=== PATIENT | male | born 1945 | race Caucasian/White ===

== ENCOUNTER 2021-02-23 16:09 | Inpatient (IN) | payer MEDICARE ==
[2021-02-23] MEDS ORDERED: Dextrose 50% Abboject 50 ML SYRINGE ONE (17:44)
[2021-02-23] MEDS ORDERED: HYDROcodone/Acetaminophen 5/325 mg Tablet ONE (18:49)
[2021-02-23 19:25] LABS: CKMB 1.7 ng/mL (0-6.6)
[2021-02-23] MEDS ORDERED: Ondansetron PF 4 MG/2 ML Vial IVP PRN (22:45)
[2021-02-23] MEDS ORDERED: Ondansetron ODT 4 MG TAB SL PRN (22:45)
[2021-02-23] MEDS ORDERED: Acetaminophen 325 MG TAB PO PRN (22:45)
[2021-02-23] MEDS ORDERED: Acetaminophen 325 MG TAB ONE (22:46)
[2021-02-24] MEDS ORDERED: HYDROcodone/Acetaminophen 5/325 mg Tablet PO PRN (00:15)
[2021-02-24] MEDS ORDERED: Dextrose 50% Abboject 50 ML SYRINGE SLOW IVP PRN (00:15)
[2021-02-24] MEDS ORDERED: Dextrose 5% in Water 1,000 ML IV PRN (00:15)
[2021-02-24] MEDS ORDERED: HumaLOG 300 UNITS/3 ML VIAL SC PRN (00:15)
[2021-02-24] MEDS ORDERED: hydrALAZINE 20 MG/ML VIAL SLOW IVP PRN (00:20)
[2021-02-24 02:46] VITALS: BMI 29.8
[2021-02-24 05:47] LABS: ALT (SGPT) 29 U/L (8-55); AST (SGOT) 62 U/L (5-34); Albumin 3.2 g/dL (3.4-4.8); Alkaline Phosphatase 65 U/L (40-110); Anion Gap 11 mmol/L (10-20); BUN (Urea Nitrogen) 13 mg/dL (8.4-25.7); Bilirubin, Total 0.8 mg/dL (0.2-1.2); Calc. Creatinine Clearance 104 mL/min (70-130); Calcium 9.2 mg/dL (7.8-10.44); Carbon Dioxide 25 mmol/L (23-31); Chloride 104 mmol/L (98-107); Globulin 3.1 g/dL (2.4-3.5); Glucose 121 mg/dL (83-110); Potassium 4.1 mmol/L (3.5-5.1); Protein, Total 6.3 g/dL (5.8-8.1); Sodium 136 mmol/L (136-145)
[2021-02-24 05:50] LABS: Band 2 % (5-11); Hemoglobin 13.4 g/dL (14.0-18.0); Lymphocytes 9 % (21-51); MDiff Complete? YES; Mean Corpuscular Hemoglobin 29.9 pg (27.0-31.0); Mean Platelet Volume 9.6 fL (7.4-10.4); Monocytes 4 % (0-10); Neutrophil 85 % (42-75); Platelet Count 146 thou/uL (130-400); Platelet Morphology Comment Appears Adequate; RBC Distribution Width 12.7 % (11.5-14.5); RBC Morphology Normal; Red Blood Cell (RBC) Count 4.49 mill/uL (4.70-6.10); White Blood Cell (WBC) Count 7.6 thou/uL (4.8-10.8)
[2021-02-24] MEDS ORDERED: Dexamethasone 1 MG TAB PO SCH (08:00)
[2021-02-24] MEDS ORDERED: Non-Formulary Item 1 EACH (Levothyroxine Sodium [Levothyroxine] 112 MCG Capsule) PO SCH (09:00)
[2021-02-24] MEDS: Carvedilol 25 MG TAB PO SCH ×2 (09:55→21:00)
[2021-02-24] MEDS: Enoxaparin Sodium 40 MG/0.4 ML SYRINGE SC SCH (09:55)
[2021-02-24] MEDS: guaiFENesin ER 600 MG TAB PO SCH ×2 (09:55→21:00)
[2021-02-24] MEDS: Sacubitril 49 MG/Valsartan 51 MG TABLET PO SCH ×2 (09:56→21:00)
[2021-02-24] MEDS: Zinc Sulfate 220 MG CAP PO SCH (09:56)
[2021-02-24] MEDS: Famotidine 20 MG TAB PO SCH ×2 (09:56→21:00)
[2021-02-24 13:49] LABS: Hemoglobin A1c 8.4 % (4.0-6.0)
[2021-02-24] MEDS: Acetaminophen 500 MG TAB PO PRN ×2 (16:15→22:10)
[2021-02-24] MEDS: Atorvastatin Calcium 10 MG TAB PO SCH (21:00)
[2021-02-24] MEDS ORDERED: Simvastatin 20 MG TAB PO SCH (21:00)
[2021-02-25] MEDS: Levothyroxine Sodium 112 MCG TAB PO SCH (05:32)
[2021-02-25 06:06] LABS: Anion Gap 13 mmol/L (10-20); BUN (Urea Nitrogen) 18 mg/dL (8.4-25.7); Calc. Creatinine Clearance 113 mL/min (70-130); Carbon Dioxide 26 mmol/L (23-31); Chloride 101 mmol/L (98-107); Potassium 3.7 mmol/L (3.5-5.1); Sodium 136 mmol/L (136-145)
[2021-02-25 06:07] LABS: Glucose 104 mg/dL (83-110); Magnesium 2.1 mg/dL (1.6-2.6)
[2021-02-25] MEDS: Sacubitril 49 MG/Valsartan 51 MG TABLET PO SCH ×2 (09:00→20:36)
[2021-02-25] MEDS ORDERED: FLU VACC QS2021-22(65YR UP)/PF 240 MCG/0.7 ML SYRINGE IM ONE (09:00)
[2021-02-25] MEDS: Zinc Sulfate 220 MG CAP PO SCH (09:00)
[2021-02-25] MEDS: guaiFENesin ER 600 MG TAB PO SCH ×2 (09:01→20:36)
[2021-02-25] MEDS: Carvedilol 25 MG TAB PO SCH ×2 (09:01→20:37)
[2021-02-25] MEDS: Enoxaparin Sodium 40 MG/0.4 ML SYRINGE SC SCH (09:03)
[2021-02-25] MEDS: Famotidine 20 MG TAB PO SCH ×2 (09:03→20:36)
[2021-02-25] MEDS: Atorvastatin Calcium 10 MG TAB PO SCH (20:36)
[2021-02-26] MEDS: Levothyroxine Sodium 112 MCG TAB PO SCH (06:52)
[2021-02-26] MEDS ORDERED: Polyethylene Glycol 3350 17 GM Packet PO SCH (09:45)
[2021-02-26] MEDS: Carvedilol 25 MG TAB PO SCH ×2 (10:07→21:10)
[2021-02-26] MEDS: Zinc Sulfate 220 MG CAP PO SCH (10:07)
[2021-02-26] MEDS: Enoxaparin Sodium 40 MG/0.4 ML SYRINGE SC SCH (10:07)
[2021-02-26] MEDS: Sacubitril 49 MG/Valsartan 51 MG TABLET PO SCH ×2 (10:08→21:10)
[2021-02-26] MEDS: Famotidine 20 MG TAB PO SCH ×2 (10:08→21:10)
[2021-02-26] MEDS: guaiFENesin ER 600 MG TAB PO SCH ×2 (10:08→21:10)
[2021-02-26] MEDS: Dexamethasone 12 MG in Sodium Chloride 0.9% 50 ML IVPB SCH (10:09)
[2021-02-26 17:14] LABS: SARS-CoV-2 IgG Spike Ab Interp Reactive (NonReactive); SARS-CoV-2 IgG Spike Conc/Indx 1026.7 AU/mL (0.00-50.0)
[2021-02-26] MEDS: Senokot S 8.6-50 MG TAB PO SCH (21:10)
[2021-02-26] MEDS: Atorvastatin Calcium 10 MG TAB PO SCH (21:10)
[2021-02-26] MEDS: Tamsulosin HCl 0.4 MG CAP PO SCH (21:11)
[2021-02-26] MEDS: Bisacodyl 10 MG SUPP PR SCH (21:42)
[2021-02-26] MEDS ORDERED: Dextrose 50% Abboject 50 ML SYRINGE SLOW IVP PRN (22:05)
[2021-02-26] MEDS ORDERED: Dextrose 5% in Water 1,000 ML IV PRN (22:05)
[2021-02-26] MEDS: HumaLOG 300 UNITS/3 ML VIAL SC PRN (22:17)
[2021-02-27 04:54] LABS: #Lymphocytes 0.9 thou/uL (1.20-3.40); #Monocytes 0.6 thou/uL (0.11-0.59); %Basophils 0.1 % (0.0-1.0); %Eosinophils 0.3 % (0.0-10.0); %Lymphocytes 14.2 % (21.0-51.0); %Monocytes 8.6 % (0.0-10.0); %Neutrophils 76.7 % (42.0-75.0); Mean Corpuscular HGB CONC 32.4 g/dL (32.0-36.0); Mean Corpuscular Hemoglobin 28.3 pg (27.0-31.0); Mean Corpuscular Volume 87.1 fL (78.0-98.0); Mean Platelet Volume 8.4 fL (7.4-10.4); Platelet Count 238 thou/uL (130-400); RBC Distribution Width 12.6 % (11.5-14.5); Red Blood Cell (RBC) Count 4.58 mill/uL (4.70-6.10); White Blood Cell (WBC) Count 6.5 thou/uL (4.8-10.8)
[2021-02-27] MEDS: Levothyroxine Sodium 112 MCG TAB PO SCH (05:28)
[2021-02-27 05:42] LABS: ALT (SGPT) 104 U/L (8-55); AST (SGOT) 126 U/L (5-34); Albumin 3.1 g/dL (3.4-4.8); Alkaline Phosphatase 132 U/L (40-110); Anion Gap 13 mmol/L (10-20); BUN (Urea Nitrogen) 17 mg/dL (8.4-25.7); Bilirubin, Total 1.1 mg/dL (0.2-1.2); CRP (Inflammatory) 30.57 mg/dL (= or < 0.5); Calc. Creatinine Clearance 112 mL/min (70-130); Calcium 9.5 mg/dL (7.8-10.44); Carbon Dioxide 23 mmol/L (23-31); Chloride 105 mmol/L (98-107); Globulin 3.4 g/dL (2.4-3.5); Glucose 324 mg/dL (83-110); Magnesium 2.2 mg/dL (1.6-2.6); Phosphorus 2.2 mg/dL (2.3-4.7); Potassium 3.9 mmol/L (3.5-5.1); Protein, Total 6.5 g/dL (5.8-8.1); Sodium 137 mmol/L (136-145)
[2021-02-27] MEDS: HumaLOG 300 UNITS/3 ML VIAL SC PRN ×4 (05:48→20:46)
[2021-02-27] MEDS: Enoxaparin Sodium 40 MG/0.4 ML SYRINGE SC SCH (08:28)
[2021-02-27] MEDS: Sacubitril 49 MG/Valsartan 51 MG TABLET PO SCH ×2 (08:30→20:48)
[2021-02-27] MEDS: Senokot S 8.6-50 MG TAB PO SCH ×2 (08:30→21:09)
[2021-02-27] MEDS: Zinc Sulfate 220 MG CAP PO SCH (08:30)
[2021-02-27] MEDS: Famotidine 20 MG TAB PO SCH ×2 (08:30→20:48)
[2021-02-27] MEDS: guaiFENesin ER 600 MG TAB PO SCH ×2 (08:30→20:48)
[2021-02-27] MEDS: Carvedilol 25 MG TAB PO SCH ×2 (08:30→20:48)
[2021-02-27] MEDS: Polyethylene Glycol 3350 17 GM Packet PO SCH (08:31)
[2021-02-27] MEDS: Dexamethasone 12 MG in Sodium Chloride 0.9% 50 ML IVPB SCH (08:35)
[2021-02-27] MEDS: Atorvastatin Calcium 10 MG TAB PO SCH (20:48)
[2021-02-27] MEDS: Tamsulosin HCl 0.4 MG CAP PO SCH (20:49)
[2021-02-27] MEDS: metFORMIN XR 500 MG TAB PO SCH (20:49)
[2021-02-27] MEDS: Bisacodyl 10 MG SUPP PR SCH (21:09)
[2021-02-28 05:31] LABS: #Monocytes 0.8 thou/uL (0.11-0.59); #Neutrophils 8.7 thou/uL (1.40-6.50); %Basophils 0.1 % (0.0-1.0); %Eosinophils 0.3 % (0.0-10.0); %Lymphocytes 9.9 % (21.0-51.0); %Monocytes 7.7 % (0.0-10.0); Hemoglobin 13.5 g/dL (14.0-18.0); Mean Corpuscular HGB CONC 31.2 g/dL (32.0-36.0); Mean Corpuscular Hemoglobin 27.2 pg (27.0-31.0); Mean Corpuscular Volume 87.1 fL (78.0-98.0); Mean Platelet Volume 8.2 fL (7.4-10.4); Platelet Count 313 thou/uL (130-400); RBC Distribution Width 12.6 % (11.5-14.5); Red Blood Cell (RBC) Count 4.98 mill/uL (4.70-6.10); White Blood Cell (WBC) Count 10.5 thou/uL (4.8-10.8)
[2021-02-28 05:49] LABS: ALT (SGPT) 123 U/L (8-55); AST (SGOT) 110 U/L (5-34); Albumin 3.3 g/dL (3.4-4.8); Alkaline Phosphatase 131 U/L (40-110); Anion Gap 13 mmol/L (10-20); BUN (Urea Nitrogen) 19 mg/dL (8.4-25.7); Bilirubin, Total 1.1 mg/dL (0.2-1.2); Calc. Creatinine Clearance 108 mL/min (70-130); Calcium 9.4 mg/dL (7.8-10.44); Carbon Dioxide 25 mmol/L (23-31); Chloride 104 mmol/L (98-107); Globulin 3.5 g/dL (2.4-3.5); Glucose 341 mg/dL (83-110); Potassium 3.9 mmol/L (3.5-5.1); Protein, Total 6.8 g/dL (5.8-8.1); Sodium 138 mmol/L (136-145)
[2021-02-28] MEDS: HumaLOG 300 UNITS/3 ML VIAL SC PRN ×4 (05:55→21:05)
[2021-02-28] MEDS: Levothyroxine Sodium 112 MCG TAB PO SCH (05:58)
[2021-02-28] MEDS ORDERED: Non-Formulary Item 1 EACH (Pioglitazone Hcl [Pioglitazone Hcl] 30 MG Tablet) PO SCH (09:00)
[2021-02-28] MEDS: Pioglitazone HCl 15 MG TAB PO SCH (09:44)
[2021-02-28] MEDS: Glimepiride 4 MG TAB PO SCH (09:44)
[2021-02-28] MEDS: Enoxaparin Sodium 40 MG/0.4 ML SYRINGE SC SCH (09:44)
[2021-02-28] MEDS: Zinc Sulfate 220 MG CAP PO SCH (09:45)
[2021-02-28] MEDS: Carvedilol 25 MG TAB PO SCH ×2 (09:45→21:07)
[2021-02-28] MEDS: guaiFENesin ER 600 MG TAB PO SCH ×2 (09:45→21:07)
[2021-02-28] MEDS: Famotidine 20 MG TAB PO SCH ×2 (09:45→21:07)
[2021-02-28] MEDS: Sacubitril 49 MG/Valsartan 51 MG TABLET PO SCH ×2 (09:45→21:07)
[2021-02-28] MEDS: Alogliptin 25 MG TAB PO SCH (09:45)
[2021-02-28] MEDS: metFORMIN XR 500 MG TAB PO SCH ×2 (09:46→21:07)
[2021-02-28] MEDS: Dexamethasone 12 MG in Sodium Chloride 0.9% 50 ML IVPB SCH (09:46)
[2021-02-28] MEDS: Polyethylene Glycol 3350 17 GM Packet PO SCH (09:47)
[2021-02-28] MEDS: Senokot S 8.6-50 MG TAB PO SCH ×2 (09:47→21:08)
[2021-02-28] MEDS ORDERED: Benzonatate 100 MG CAP PO PRN (17:23)
[2021-02-28] MEDS: Atorvastatin Calcium 10 MG TAB PO SCH (21:07)
[2021-02-28] MEDS: Tamsulosin HCl 0.4 MG CAP PO SCH (21:07)
[2021-02-28] MEDS: Bisacodyl 10 MG SUPP PR SCH (21:08)
[2021-03-01] MEDS: Levothyroxine Sodium 112 MCG TAB PO SCH (05:29)
[2021-03-01] MEDS: HumaLOG 300 UNITS/3 ML VIAL SC PRN ×4 (05:42→21:18)
[2021-03-01] MEDS: Glimepiride 4 MG TAB PO SCH (08:52)
[2021-03-01] MEDS: Alogliptin 25 MG TAB PO SCH (08:53)
[2021-03-01] MEDS: Carvedilol 25 MG TAB PO SCH ×2 (08:54→21:12)
[2021-03-01] MEDS: Dexamethasone 12 MG in Sodium Chloride 0.9% 50 ML IVPB SCH (08:54)
[2021-03-01] MEDS: Famotidine 20 MG TAB PO SCH ×2 (08:55→21:12)
[2021-03-01] MEDS: Enoxaparin Sodium 40 MG/0.4 ML SYRINGE SC SCH (08:55)
[2021-03-01] MEDS: guaiFENesin ER 600 MG TAB PO SCH ×2 (08:55→21:12)
[2021-03-01] MEDS: metFORMIN XR 500 MG TAB PO SCH ×2 (08:56→21:11)
[2021-03-01] MEDS: Pioglitazone HCl 15 MG TAB PO SCH (08:57)
[2021-03-01] MEDS: Sacubitril 49 MG/Valsartan 51 MG TABLET PO SCH ×2 (08:58→21:12)
[2021-03-01] MEDS: Polyethylene Glycol 3350 17 GM Packet PO SCH (08:58)
[2021-03-01] MEDS: Zinc Sulfate 220 MG CAP PO SCH (08:59)
[2021-03-01] MEDS: Senokot S 8.6-50 MG TAB PO SCH ×2 (08:59→21:12)
[2021-03-01] MEDS: Lantus 1000 UNITS/10 ML VIAL SC SCH (09:07)
[2021-03-01] MEDS: BARICITINIB 2 MG TAB PO SCH ×3 (09:55→09:57)
[2021-03-01] MEDS: Tamsulosin HCl 0.4 MG CAP PO SCH (21:12)
[2021-03-01] MEDS: Atorvastatin Calcium 10 MG TAB PO SCH (21:12)
[2021-03-01] MEDS: Bisacodyl 10 MG SUPP PR SCH (21:12)
[2021-03-02] MEDS: HumaLOG 300 UNITS/3 ML VIAL SC PRN ×3 (06:42→19:48)
[2021-03-02] MEDS: Levothyroxine Sodium 112 MCG TAB PO SCH (06:42)
[2021-03-02] MEDS: Pioglitazone HCl 15 MG TAB PO SCH (08:55)
[2021-03-02] MEDS: Glimepiride 4 MG TAB PO SCH (08:55)
[2021-03-02] MEDS: Senokot S 8.6-50 MG TAB PO SCH ×2 (08:59→19:54)
[2021-03-02] MEDS: Famotidine 20 MG TAB PO SCH ×2 (09:00→19:47)
[2021-03-02] MEDS: Carvedilol 25 MG TAB PO SCH ×2 (09:00→19:47)
[2021-03-02] MEDS: guaiFENesin ER 600 MG TAB PO SCH ×2 (09:00→19:47)
[2021-03-02] MEDS: Sacubitril 49 MG/Valsartan 51 MG TABLET PO SCH ×2 (09:00→19:48)
[2021-03-02] MEDS: Zinc Sulfate 220 MG CAP PO SCH (09:00)
[2021-03-02] MEDS: Polyethylene Glycol 3350 17 GM Packet PO SCH (09:02)
[2021-03-02] MEDS: metFORMIN XR 500 MG TAB PO SCH ×2 (09:02→19:47)
[2021-03-02] MEDS: Alogliptin 25 MG TAB PO SCH (09:02)
[2021-03-02] MEDS: Dexamethasone 12 MG in Sodium Chloride 0.9% 50 ML IVPB SCH (09:04)
[2021-03-02] MEDS: Enoxaparin Sodium 40 MG/0.4 ML SYRINGE SC SCH (09:04)
[2021-03-02] MEDS: Lantus 1000 UNITS/10 ML VIAL SC SCH (09:33)
[2021-03-02] MEDS ORDERED: Bisacodyl 10 MG SUPP PR PRN (16:44)
[2021-03-02] MEDS: Atorvastatin Calcium 10 MG TAB PO SCH (19:47)
[2021-03-02] MEDS: Tamsulosin HCl 0.4 MG CAP PO SCH (19:48)
[2021-03-03 05:51] LABS: #Eosinphils 0.1 thou/uL (0.0-0.7); #Monocytes 0.6 thou/uL (0.11-0.59); #Neutrophils 7.9 thou/uL (1.40-6.50); %Basophils 0.2 % (0.0-1.0); %Eosinophils 0.8 % (0.0-10.0); %Lymphocytes 10.6 % (21.0-51.0); %Monocytes 6.4 % (0.0-10.0); Hemoglobin 12.6 g/dL (14.0-18.0); Mean Corpuscular HGB CONC 33.9 g/dL (32.0-36.0); Mean Corpuscular Hemoglobin 29.3 pg (27.0-31.0); Mean Corpuscular Volume 86.5 fL (78.0-98.0); Mean Platelet Volume 7.9 fL (7.4-10.4); Platelet Count 225 thou/uL (130-400); RBC Distribution Width 12.6 % (11.5-14.5); Red Blood Cell (RBC) Count 4.31 mill/uL (4.70-6.10); White Blood Cell (WBC) Count 9.6 thou/uL (4.8-10.8)
[2021-03-03] MEDS: Levothyroxine Sodium 112 MCG TAB PO SCH (05:52)
[2021-03-03 06:12] LABS: Anion Gap 8 mmol/L (10-20); BUN (Urea Nitrogen) 16 mg/dL (8.4-25.7); Calc. Creatinine Clearance 136 mL/min (70-130); Calcium 8.7 mg/dL (7.8-10.44); Carbon Dioxide 26 mmol/L (23-31); Chloride 105 mmol/L (98-107); Glucose 128 mg/dL (83-110); Magnesium 1.9 mg/dL (1.6-2.6); Potassium 3.8 mmol/L (3.5-5.1); Sodium 135 mmol/L (136-145)
[2021-03-03] MEDS ORDERED: Dexamethasone 4 MG TAB PO SCH (08:00)
[2021-03-03] MEDS: Polyethylene Glycol 3350 17 GM Packet PO SCH (09:00)
[2021-03-03] MEDS: Glimepiride 4 MG TAB PO SCH (09:01)
[2021-03-03] MEDS: Alogliptin 25 MG TAB PO SCH (09:02)
[2021-03-03] MEDS: guaiFENesin ER 600 MG TAB PO SCH (09:02)
[2021-03-03] MEDS: Famotidine 20 MG TAB PO SCH (09:02)
[2021-03-03] MEDS: Carvedilol 25 MG TAB PO SCH (09:02)
[2021-03-03] MEDS: Enoxaparin Sodium 40 MG/0.4 ML SYRINGE SC SCH (09:02)
[2021-03-03] MEDS: Senokot S 8.6-50 MG TAB PO SCH (09:03)
[2021-03-03] MEDS: Pioglitazone HCl 15 MG TAB PO SCH (09:03)
[2021-03-03] MEDS: Sacubitril 49 MG/Valsartan 51 MG TABLET PO SCH (09:03)
[2021-03-03] MEDS: metFORMIN XR 500 MG TAB PO SCH (09:03)
[2021-03-03] MEDS: Zinc Sulfate 220 MG CAP PO SCH (09:04)
[2021-03-03] MEDS: Lantus 1000 UNITS/10 ML VIAL SC SCH (09:05)
[2021-03-03 11:55] VITALS: BP 125/58; TEMP 98.1
[2021-03-03] MEDS: HumaLOG 300 UNITS/3 ML VIAL SC PRN (13:02)
== END 2021-03-03 16:10 | disposition home or self-care (01) | DRG 177 ==
LOC: ERS 16:09 → ERHOLD 20:12 → 2SW 02-24 02:01 → OBSVTOIN 02-24 16:41
PROVIDERS: ADMIT Internal Medicine; ATTEND Internal Medicine
PROC: 8E0ZXY6 Isolation (ICD-10-PCS; 2021-02-20)
PROC: XW0DXM6 Introduction of Baricitinib into Mouth and Pharynx, External Approach, New Technology Group 6 (ICD-10-PCS; principal; 2021-02-26)
PROC: 3E0333Z Introduction of Anti-inflammatory into Peripheral Vein, Percutaneous Approach (ICD-10-PCS; 2021-02-26)
DX: U07.1 COVID-19 (principal); J12.82 Pneumonia due to coronavirus disease 2019; G93.41 Metabolic encephalopathy; J96.00 Acute respiratory failure, unspecified whether with hypoxia or hypercapnia; I50.22 Chronic systolic (congestive) heart failure; I47.2 Ventricular tachycardia; I42.9 Cardiomyopathy, unspecified; I13.0 Hypertensive heart and chronic kidney disease with heart failure and stage 1 through stage 4 chronic kidney disease, or unspecified chronic kidney disease; E78.5 Hyperlipidemia, unspecified; E11.649 Type 2 diabetes mellitus with hypoglycemia without coma; E11.22 Type 2 diabetes mellitus with diabetic chronic kidney disease; N18.2 Chronic kidney disease, stage 2 (mild); D63.1 Anemia in chronic kidney disease; E03.9 Hypothyroidism, unspecified; Z95.810 Presence of automatic (implantable) cardiac defibrillator; Z79.899 Other long term (current) drug therapy; Z79.890 Hormone replacement therapy; Z86.73 Personal history of transient ischemic attack (TIA), and cerebral infarction without residual deficits
CPT/HCPCS: 36415; 36416; 80048; 80053; 82553; 82728; 83036; 83735; 84100; 84484; 85007; 85025; 85027; 85379; 86140; 86769; 93005; 96372; 96374; G0378; J1100; J1650; J1815; J8540

== ENCOUNTER 2023-04-07 10:08 | Emergency (ER) | payer MEDICARE ==
[2023-04-07 10:43] LABS: #Basophils 0.1 thou/uL (0.0-0.2); #Eosinphils 0.4 thou/uL (0.0-0.7); #Monocytes 0.9 thou/uL (0.11-0.59); #Neutrophils 11.7 thou/uL (1.40-6.50); %Basophils 0.6 % (0.0-1.0); %Eosinophils 2.4 % (0.0-10.0); %Lymphocytes 8.4 % (21.0-51.0); %Monocytes 6.2 % (0.0-10.0); %Neutrophils 81.8 % (42.0-75.0); Hemoglobin 14.9 g/dL (14.0-18.0); Mean Corpuscular HGB CONC 33.1 g/dL (32.0-36.0); Mean Corpuscular Hemoglobin 28.2 pg (27.0-31.0); Mean Corpuscular Volume 85.1 fl (78.0-98.0); Mean Platelet Volume 11.5 fL (7.4-10.4); Platelet Count 130 10x3/uL (130-400); RBC Distribution Width 13.3 % (11.5-14.5); Red Blood Cell (RBC) Count 5.29 mill/uL (4.70-6.10); White Blood Cell (WBC) Count 14.3 10x3/uL (4.8-10.8)
[2023-04-07 11:09] LABS: ALT (SGPT) 17 U/L (8-55); AST (SGOT) 18 U/L (5-34); Albumin 4.7 g/dL (3.4-4.8); Alkaline Phosphatase 54 U/L (40-110); Anion Gap 15 mmol/L (10-20); BUN (Urea Nitrogen) 15 mg/dL (8.4-25.7); Bilirubin, Total 1.3 mg/dL (0.2-1.2); CK (CPK) 46 U/L (30-200); Calc. Creatinine Clearance 0 mL/min (70-130); Calcium 10.4 mg/dL (7.8-10.44); Carbon Dioxide 26 mmol/L (23-31); Chloride 102 mmol/L (98-107); Estimated GFR 89; Globulin 2.8 g/dL (2.4-3.5); Glucose 180 mg/dL (83-110); Magnesium 1.8 mg/dL (1.6-2.6); Potassium 3.9 mmol/L (3.5-5.1); Protein, Total 7.5 g/dL (5.8-8.1); Sodium 139 mmol/L (136-145); Troponin I Less than 0.010 ng/mL (< 0.028)
[2023-04-07 11:30] LABS: Bacteria/HPF None Seen HPF (None Seen); Bilirubin Negative (Negative); Blood, Urine Negative (Negative); CAUTI Indications for Culture Dysuria,urgency,freq; Clarity Clear (Clear); Glucose, Urine (Dipstick) Greater than 1000 mg/dL (Negative); Ketone, Urine Trace mg/dL (Negative); Leukocyte 75 Leu/uL (Negative); Nitrite Negative (Negative); Protein, Urine (Dipstick) Negative (Neg-Trace); RBC/HPF 0-3 HPF (0-3); Specific Gravity, Urine 1.021 (1.002-1.036); Squamous Epithelial 0-3 HPF (0-3); Urobilinogen Normal mg/dL (Less than 2); WBC/HPF 0-3 HPF (0-3)
[2023-04-07 11:31] LABS: Urine Culture Reflex No No
[2023-04-07 13:58] LABS: Free T4 (Free Thyroxine) 1.46 ng/dL (0.70-1.48)
== END 2023-04-07 15:20 | disposition home or self-care (01) ==
LOC: ERS 10:08
DX: S06.9X9A Unspecified intracranial injury with loss of consciousness of unspecified duration, initial encounter (principal); R42 Dizziness and giddiness; E05.90 Thyrotoxicosis, unspecified without thyrotoxic crisis or storm; I11.0 Hypertensive heart disease with heart failure; I50.9 Heart failure, unspecified; E11.9 Type 2 diabetes mellitus without complications; E78.00 Pure hypercholesterolemia, unspecified; W18.30XA Fall on same level, unspecified, initial encounter; Y92.009 Unspecified place in unspecified non-institutional (private) residence as the place of occurrence of the external cause; Z95.0 Presence of cardiac pacemaker; Z79.84 Long term (current) use of oral hypoglycemic drugs; Z79.899 Other long term (current) drug therapy
CPT/HCPCS: 70450; 72125; 72128; 72131; 80053; 81001; 82550; 83735; 84439; 84443; 84481; 84484; 85025; 93005